=== PATIENT | male | born 1990 | race Caucasian/White ===

== ENCOUNTER 2022-09-29 13:17 | Emergency (ER) | payer MEDICAID ==
--- NOTE | 2022-09-29 13:24 | ERPHSYRPT ---
- History of Present Illness Time Seen by Provider: 09/29/22 13:24 Source: patient, family Exam Limitations: no limitations Physician History: This is a 32-year-old white male patient who presents with 1 week history of right flank pain which is now localized in the right lower quadrant over the last several days. He has vomited 1 time and had watery diarrhea last evening. Patient has not had any abdominal surgeries in the past. He has no known drug allergies and he takes no medications chronically. Patient states that the back pain began approximately 1 week ago after a coughing spell. He said the pain brought him to his knees. He denies any fall or traumatic injury causing the back pain. He is never had anything like this before. He does have a history of right inguinal hernia in the past but it was several years ago. He has not lost bowel or bladder control. His pain does shoot down into his right hip and right buttock. He has not lost sensation in his lower legs or feet. Timing/Duration: week(s) (1), worse Method of Injury: unknown Quality: aching Severity of Pain-Max: moderate Severity of Pain-Current: moderate Associated Symptoms: denies symptoms, No urinary incontinence, No loss of bowel control, No constipation, No problems urinating, No numbness in legs/feet, No lower back pain Previous symptoms: no prior history Allergies/Adverse Reactions: No Known Drug Allergies Allergy (Verified 09/29/22 13:46) Hx Influenza Vaccination/Date Given: No Hx Pneumococcal Vaccination/Date Given: No Travel Risk - International Travel Have you traveled outside of the country in past 3 weeks: No - Coronavirus Screening Are you exhibiting any of the following symptoms?: No Close contact with a COVID-19 positive Pt in past 14-21 Days: No - Review of Systems Constitutional: No Symptoms Eyes: No Symptoms Ears, Nose, & Throat: No Symptoms Respiratory: No Symptoms Cardiac: No Symptoms Abdominal/Gastrointestinal: Abdominal Pain (Right lower quadrant), Nausea, Vomiting, Diarrhea, Appetite Changes Genitourinary Symptoms: Flank Pain (Right flank) Musculoskeletal: No Symptoms Skin: No Symptoms Neurological: No Symptoms Psychological: No Symptoms Endocrine: No Symptoms Hematologic/Lymphatic: No Symptoms Immunological/Allergic: No Symptoms All Other Systems: Reviewed and Negative - Past Medical History Pertinent Past Medical History: No Neurological History: No Pertinent History ENT History: No Pertinent History Cardiac History: No Pertinent History Respiratory History: No Pertinent History Endocrine Medical History: No Pertinent History Musculoskeletal History: No Pertinent History GI Medical History: No Pertinent History History: No Pertinent History Psycho-Social History: No Pertinent History Male Reproductive Disorders: No Pertinent History - Past Surgical History Past Surgical History: Yes Neuro Surgical History: No Pertinent History Cardiac: No Pertinent History Respiratory: No Pertinent History Gastrointestinal: Appendectomy Genitourinary: No Pertinent History Musculoskeletal: No Pertinent History Male Surgical History: No Pertinent History - Social History Smoking Status: Never smoker Exposure to second hand smoke: Yes Drug Use: none - Nursing Vital Signs Nursing Vital Signs: Initial Vital Signs Temperature 97.8 F 09/29/22 13:23 Pulse Rate 84 09/29/22 13:23 Blood Pressure 128/78 09/29/22 13:23 O2 Sat by Pulse Oximetry 100 09/29/22 13:23 Pain Scale Pain Intensity [Right Back] 4 Pain Intensity 6 - Physical Exam General Appearance: no apparent distress, alert, anxiety, thin Eye Exam: PERRL/EOMI, eyes nml inspection Ears, Nose, Throat Exam: normal ENT inspection, moist mucous membranes Neck Exam: normal inspection, non-tender, supple, full range of motion Respiratory Exam: normal breath sounds, lungs clear, airway intact, No chest t enderness, No respiratory distress Cardiovascular Exam: regular rate/rhythm, normal heart sounds, normal peripheral pulses Gastrointestinal Exam: soft, normal bowel sounds, tenderness (Right lower quadrant), guarding (Right lower quadrant to palpation) Rectal Exam: not done Back Exam: normal inspection, normal range of motion, CVA tenderness (Right), No vertebral tenderness Extremity Exam: normal inspection, normal range of motion, pelvis stable Neurologic Exam: alert, oriented x 3, cooperative, stator connector II-XII nml as tested, normal mood/affect, nml cerebellar function, nml station & gait, sensation nml Skin Exam: normal color, warm, dry Lymphatic Exam: No adenopathy SpO2 Interpretation: normal O2 Delivery: Room Air - Course Nursing assessment & vital signs reviewed: Yes Ordered Tests: Active Orders 24 hr Category Date Time Status IV Insertion STAT Care 09/29/22 13:45 Active ABDOMEN AND PELVIS W/0 CONTRAS [CT] Stat Exams 09/29/22 13:47 Completed AMYLASE Stat Lab 09/29/22 14:05 Completed CBC W DIFF Stat Lab 09/29/22 14:05 Completed CMP Stat Lab 09/29/22 14:05 Completed LIPASE Stat Lab 09/29/22 14:05 Completed UA W/RFX UR CULTURE Stat Lab 09/29/22 13:51 Completed Medication Summary Generic Name Dose Route Start Last Admin Trade Name Darron PRN Reason Stop Dose Admin Sodium Chloride 500 mls @ 500 mls/hr 09/29/22 15:30 Sodium Chloride 0.9% 500 Ml IV 09/29/22 16:29 .Q1H ONE Discontinued Medications Generic Name Dose Route Start Last Admin Trade Name Darron PRN Reason Stop Dose Admin Hydromorphone HCl 1 mg 09/29/22 13:45 09/29/22 14:16 Hydromorphone 1 Mg/1ml Inj IV 09/29/22 13:46 1 mg STAT ONE Administration Hydromorphone HCl Confirm 09/29/22 14:10 Hydromorphone 1 Mg/1ml Inj Administered 09/29/22 14:11 Dose 1 mg .ROUTE .STK-MED ONE Sodium Chloride 1,000 mls @ 999 mls/hr 09/29/22 13:45 09/29/22 14:14 Sodium Chloride 0.9% 1000 Ml IV 09/29/22 14:45 999 mls/hr .Q1H1M STA Administration Sodium Chloride Confirm 09/29/22 14:10 Sodium Chloride 0.9% 1000 Ml Administered 09/29/22 14:11 Dose 1,000 mls @ ud .ROUTE .STK-MED ONE Ketorolac Tromethamine 30 mg 09/29/22 13:45 09/29/22 14:15 Ketorolac Tromethamine 30 Mg/Ml Inj IV 09/29/22 13:46 30 mg STAT ONE Administration Ketorolac Tromethamine Confirm 09/29/22 14:10 Ketorolac Tromethamine 30 Mg/Ml Inj Administered 09/29/22 14:11 Dose 30 mg .ROUTE .STK-MED ONE Ondansetron HCl 4 mg 09/29/22 13:45 09/29/22 14:15 Ondansetron Hcl 4 Mg/2 Ml Vial IV 09/29/22 13:46 4 mg STAT ONE Administration Ondansetron HCl Confirm 09/29/22 14:10 Ondansetron Hcl 4 Mg/2 Ml Vial Administered 09/29/22 14:11 Dose 4 mg .ROUTE .STK-MED ONE Lab/Rad Data: Laboratory Result Diagrams 09/29/22 14:05 09/29/22 14:05 Laboratory Results 09/29/22 09/29/22 09/29/22 Range/Units 14:05 14:05 13:51 WBC 9.6 (4.0-10.5) x10^3/uL RBC 5.85 H (4.1-5.6) x10^6/uL Hgb 15.7 (12.5-18.0) g/dL Hct 46.4 (42-50) % MCV 79.3 (78-100) fL MCH 26.8 (26-32) pg MCHC 33.8 (32-36) g/dL RDW 12.4 (11.5-14.0) % Plt Count 244 (150-450) x10^3/uL MPV 9.4 (7.5-11.0) fL Gran % 51.1 (36.0-66.0) % Immature Gran % (Auto) 0.3 (0.00-0.4) % Nucleat RBC Rel Count 0.0 (0.00-0.1) % Eos # (Auto) 0.48 (0-0.5) x10^3/uL Immature Gran # (Auto) 0.03 (0.00-0.03) x10^3u/L Absolute Lymphs (auto) 2.56 (1.0-4.6) x10^3/uL Absolute Monos (auto) 1.56 H (0.0-1.3) x10^3/uL Absolute Nucleated RBC 0.00 (0.00-0.01) x10^3u/L Lymphocytes % 26.7 (24.0-44.0) % Monocytes % 16.3 H (0.0-12.0) % Eosinophils % 5.0 (0.00-5.0) % Basophils % 0.6 (0.0-0.4) % Absolute Granulocytes 4.89 (1.4-6.9) x10^3/uL Basophils # 0.06 (0-0.4) x10^3/uL Sodium 137 (137-145) mmol/L Potassium 3.8 (3.5-5.1) mmol/L Chloride 101 (98-107) mmol/L Carbon Dioxide 24 (22-30) mmol/L Anion Gap 16.8 H (5-15) MEQ/L BUN 22 H (9-20) mg/dL Creatinine 0.84 (0.66-1.25) mg/dL Estimated GFR > 60.0 ML/MIN Glucose 103 (74-106) mg/dL Calcium 9.4 (8.4-10.2) mg/dL Total Bilirubin 0.50 (0.2-1.3) mg/dL AST 27 (17-59) U/L ALT 27 (0-50) U/L Alkaline Phosphatase 63 (38-126) U/L Serum Total Protein 7.9 (6.3-8.2) g/dL Albumin 4.6 (3.5-5.0) g/dL Amylase 64 (30-110) U/L Lipase 28 (23-300) U/L Urine Color Dark Yellow (Yellow) Urine Appearance Clear (Clear) Urine pH 6.0 (4.6-8.0) Ur Specific [place] >=1.030 A (1.005-1.030) Urine Protein Trace A (Negative) Urine Glucose (UA) Negative (Negative) mg/dL Urine Ketones Trace A (Negative) Urine Blood Negative (Negative) Urine Nitrite Negative (Negative) Urine Bilirubin Negative (Negative) Urine Urobilinogen 0.2 (0.2) mg/dL Ur Leukocyte Esterase Negative (Negative) U Hyaline Cast (Auto) None Seen (0-2) /LPF Urine Microscopic RBC 0-2 (0-5) /HPF Urine Microscopic WBC 0-2 (0-5) /HPF Ur Epithelial Cells Rare (None Seen) /HPF Calcium Oxalate Crystal 26-50 A (None Seen) /HPF Urine Bacteria Rare A (None Seen) /HPF Urine Culture Reflexed NO (NO) Slides for Path Review YES - Progress Progress Note: 09/29/22 15:31 CT scan of the abdomen pelvis without contrast was interpreted by the radiologist. There is no evidence of any acute intra-abdominal or intrapelvic process. There are chronic bony findings. This patient's medical issue is 1 of moderate complexity. The level of medical complexity and the work-up performed is based on review of the patient's past medical history, review of the patient's medication list, reviewed the patient's drug allergy list, history present illness and the physical findings on examination. This patient work-up includes placement of intravenous line, infusion of 1 and a 1/2 L of normal saline solution, CT scan of the abdomen pelvis without contrast, CBC, CMP, amylase and lipase levels. We also performed a urinalysis. I reviewed the results of the labs and work-up obtained and patient does not have any acute, emergent medical issue. Likely he has a degree of sciatica we will provide a prescription as an outpatient for both short-term prednisone use and Norflex. We provided him with Toradol 30 mg intravenous injection as well as Dilaudid 1 mg intravenous injection and Zofran 4 mg intr avenous injection. His symptoms have improved. Counseled pt/family regarding: lab results, diagnosis, need for follow-up, rad results Medical Desision Making - Independent Historian Additional History obtained from: Mother - Diagnostic Testing Diagnostic test were ordered, analyzed, and reviewed by me: Yes Radiological Interpretation: Reviewed by me, Teleradiologist Report - Risk of complications The pt has a mod risk of morbidity or mortality based on: Need for prescription drug management - Departure Departure Disposition: Home Clinical Impression: Mild dehydration, Sciatica Condition: Stable Critical Care Time: No Referrals: AZEB MASON [Primary Care Provider] - Follow up/PCP as directed Additional Instructions: Drink plenty of fluids. Take your medication as prescribed. Follow-up with your primary care provider for persistent symptoms. Prescriptions: Prednisone 10 mg [Deltasone 10 mg] 10 mg PO TID #12 tablet Orphenadrine Citrate 100 mg [Norflex 100 MG Tablet] 100 mg PO BID #10 tab
[2022-09-29] MEDS ORDERED: Hydromorphone 1 mg/ml Injection ONE (14:10)
[2022-09-29] MEDS ORDERED: TORAdol 30 mg Injection ONE (14:10)
[2022-09-29] MEDS ORDERED: Zofran 4 MG/2 ML VIAL ONE (14:10)
[2022-09-29] MEDS ORDERED: Sodium Chloride 0.9% 1000 ML 1,000 ML ONE (14:10)
[2022-09-29 14:13] LABS: Absolute Neutrophil Ct (ANC) 4.89 x10^3/uL (1.4-6.9); BASOPHIL % 0.6 % (0.0-0.4); Basophil (Absolute #) 0.06 x10^3/uL (0-0.4); Eosinophil (Absolute #) 0.48 x10^3/uL (0-0.5); Hematocrit 46.4 % (42-50); Hemoglobin 15.7 g/dL (12.5-18.0); IMMATURE GRAN # 0.03 x10^3u/L (0.00-0.03); IMMATURE GRAN % 0.3 % (0.00-0.4); Lymphocyte (Absolute #) 2.56 x10^3/uL (1.0-4.6); Lymphocytes % 26.7 % (24.0-44.0); Mean Cell Volume 79.3 fL (78-100); Mean Corpuscular Hemoglobin 26.8 pg (26-32); Mean Corpuscular Hgb Concent. 33.8 g/dL (32-36); Mean Platelet Volume 9.4 fL (7.5-11.0); Monocyte (Absolute #) 1.56 x10^3/uL (0.0-1.3); Monocytes % 16.3 % (0.0-12.0); Neutrophil % 51.1 % (36.0-66.0); Platelet Count 244 x10^3/uL (150-450); Red Blood Count 5.85 x10^6/uL (4.1-5.6); Red Cell Distribution Width 12.4 % (11.5-14.0); White Blood Count 9.6 x10^3/uL (4.0-10.5)
[2022-09-29] MEDS: Sodium Chloride 0.9% 1000 ML 1,000 ML IV STA (14:14)
[2022-09-29] MEDS: TORAdol 30 mg Injection IV ONE (14:15)
[2022-09-29] MEDS: Zofran 4 MG/2 ML VIAL IV ONE (14:15)
[2022-09-29] MEDS: Hydromorphone 1 mg/ml Injection IV ONE (14:16)
[2022-09-29 14:26] LABS: ALBUMIN 4.6 g/dL (3.5-5.0); ALKALINE PHOSPHATASE 63 U/L (38-126); AMYLASE 64 U/L (30-110); ANION GAP 16.8 MEQ/L (5-15); BLOOD UREA NITROGEN 22 mg/dL (9-20); CHLORIDE 101 mmol/L (98-107); Calcium 9.4 mg/dL (8.4-10.2); Carbon Dioxide 24 mmol/L (22-30); Creatinine 1 0.84 mg/dL (0.66-1.25); EST GLOMERULAR FILTRATION RATE > 60.0 ML/MIN; Glucose 103 mg/dL (74-106); LIPASE 28 U/L (23-300); Potassium 3.8 mmol/L (3.5-5.1); SGOT/AST 27 U/L (17-59); SGPT/ALT 27 U/L (0-50); SODIUM 137 mmol/L (137-145); Total Protein 7.9 g/dL (6.3-8.2)
--- NOTE | 2022-09-29 14:30 | XRAY ---
Indication: Right flank/right lower quadrant pain. Diarrhea. Multiple contiguous axial images obtained through the abdomen and pelvis without contrast. Comparison: None Lung bases clear. Heart not enlarged. Noncontrasted stomach and bowel loops appear nonobstructed. Previous appendectomy. No free fluid/air. Remaining liver, gallbladder, pancreas, spleen, adrenal glands, kidneys, ureters, bladder, and aorta are unremarkable for noncontrast exam. Osseous structures intact with incidental minimal levoscoliosis centered at L2 and small T12-L3 [place]l nodes. Impression: Incidental chronic bony findings. Remaining CT abdomen/pelvis without contrast exam is negative.
[2022-09-29 14:50] LABS: Appearance Clear (Clear); Bilirubin Negative (Negative); Blood Negative (Negative); Glucose, Urine Negative (Negative); Ketones Trace (Negative); Leukocyte Esterase Negative (Negative); Nitrite Negative (Negative); Protein,Urine Dip Trace (Negative); Specific Gravity >=1.030 (1.005-1.030); Urobilinogen 0.2 mg/dL (0.2); WBC 0-2 /HPF (0-5)
[2022-09-29 15:10] LABS: Bacteria Rare /HPF (None Seen); Epithelial Cells Rare /HPF (None Seen); Hyaline Casts None Seen /LPF (0-2); RBC 0-2 /HPF (0-5)
[2022-09-29 15:11] LABS: ADD URINE CULTURE? NO (NO); Calcium Oxalate Crystals 26-50 /HPF (None Seen)
[2022-09-29 15:24] LABS: Slide Review 1 YES
[2022-09-29] MEDS ORDERED: Sodium Chloride 0.9% 500 ML 500 ML IV ONE (15:52)
[2022-09-29] MEDS: Sodium Chloride 0.9% 500 ML 500 ML IV ONE (15:53)
[2022-09-29 15:59] VITALS: BP 123/87; O2SAT 97
[2022-09-29 16:57] VITALS: PULSE 66
== END 2022-09-29 16:57 | disposition home or self-care (01) ==
LOC: ED 13:17
DX: E86.0 Dehydration (principal); M54.31 Sciatica, right side; R10.31 Right lower quadrant pain; R11.2 Nausea with vomiting, unspecified; R19.7 Diarrhea, unspecified; Z79.52 Long term (current) use of systemic steroids
CPT/HCPCS: 36000; 36415; 74176; 80053; 81001; 82150; 83690; 85025; 96360; 96361; 96374; 96375; 99284; J1170; J1885; J2405